=== PATIENT | male | born 1965 | race Caucasian/White ===

== ENCOUNTER 2017-09-16 11:01 | Day surgery (SDC) | payer OTHER ==
--- NOTE | 2017-09-14 08:52 | HP ---
CC: Dr. Anders; Dr. Gonzalez; Stanton Taylor MD * ADMITTING HISTORY AND PHYSICAL: DATE OF ADMISSION: 09/16/17 ADMITTING DIAGNOSES: 1. Left hydronephrosis. 2. Gross hematuria. 3. Calculus, left proximal ureter. 4. Calculus, left kidney. PLANNED PROCEDURE: Left retrograde, left stent insertion, and possible ureteroscopy (to be followed in the near future by shock wave lithotripsy). SURGEON: Dr. Taylor. HISTORY OF PRESENT ILLNESS: Jefry Clarke is a 52-year-old gentleman who was evaluated for a 3 to 4 week history of intermittent painless gross hematuria. Evaluation revealed a 7 to 8 mm calculus in the proximal left ureter with mild left hydronephrosis and approximately 1 cm left lower pole calculus. He was seen in followup and there was very little change in the position of the calculus in the left proximal ureter and he is now being brought in for left stent insertion, possible ureteroscopy to be followed in the near future by shock wave lithotripsy. Of note also is the fact that on his ultrasound, the appearance is consistent with autosomal polycystic kidney disease and he has a family history of autosomal polycystic kidney disease also. PAST MEDICAL HISTORY: Significant for: 1. Atrial fibrillation. 2. Graves disease (treated with radiation therapy). 3. Recurrent renal calculi. MEDICATIONS ON ADMISSION: 1. Levothyroxine 125 mcg once a day. 2. Xarelto 20 mg, which is currently on hold. 3. Flecainide acetate 50 mg 2 tablets by mouth twice a day and flecainide acetate 150 mg 1 tablet by mouth p.r.n. ALLERGIES: No known drug allergies. SMOKING HISTORY: He is a former smoker who quit about 12 years ago and has a 25 - pack year smoking history. FAMILY HISTORY: His father has kidney stones and his sister has adult polycystic kidney disease. REVIEW OF SYSTEMS: He denies any chest pain or shortness of breath. There is no history of diabetes mellitus or any other major systemic illness. PHYSICAL EXAMINATION GENERAL: Reveals a pleasant healthy appearing middle-aged gentleman. VITAL SIGNS: Blood pressure is 140/88, pulse 74 per minute, regular, oxygen saturation 98% on room air. LUNGS: Clear bilaterally. CARDIOVASCULAR EXAM: Regular rate and rhythm. S1, S2. ABDOMEN: Soft with mild left flank tenderness. IMPRESSION: I had a conversation with his vba programmer, Dr. Gonzalez and he feels that it is okay for Mr. Clarke to be off the Xarelto for the perioperative period and I will restart it at some point after the lithotripsy, once ensured there is no evidence of any bleeding related to the procedure. PLAN: Plan is for left ureteral stent insertion, possible ureteroscopy, to be followed in the near future by shock wave lithotripsy. [id number]/[facility] #: [id number] MARIO ALBERTO
[~2017-09-16 11:01] MED LIST: Buffered Lidocaine 0.9% SYRIN* 5 ML/SYR SYRINGE INTRADERM ONE; Gentamicin ADULT (*) 160 MG in NS 0.9% 100 ML* 100 ML IVPB ONE
[2017-09-16] MEDS ORDERED: Chloroprocaine 2%* 20 ML VIAL ONE (11:30)
[2017-09-16] MEDS ORDERED: Midazolam* 1 MG/ML 2 ML VIAL (2 MG) ONE (11:30)
[2017-09-16] MEDS ORDERED: Lidocaine 2% PF * 5 ML VIAL ONE (11:30)
[2017-09-16] MEDS ORDERED: fentaNYL* 50 MCG/ML 2 ML VIAL (100 MCG VIAL) ONE (11:30)
[2017-09-16] MEDS ORDERED: cefTRIAXone(*) 2 GM ADDV.VIAL IVPB ONE (11:53)
[2017-09-16] MEDS ORDERED: Iohexol 180 (CONTRAST) 10 ML SDV IV ONE ×2 (12:13→15:24)
[2017-09-16] MEDS ORDERED: Propofol* 10 MG/ML 20 ML BTL IV PUSH ONE ×2 (15:41)
[2017-09-16] MEDS ORDERED: Tamsulosin CAP* 0.4 MG ONE (16:13)
[2017-09-16] MEDS ORDERED: Ondansetron ODT TAB* 4 MG PO PRN (16:23)
[2017-09-16] MEDS ORDERED: fentaNYL* 50 MCG/ML 2 ML VIAL (100 MCG VIAL) IV PRN (16:23)
[2017-09-16] MEDS ORDERED: Naloxone* 0.4 MG/ML 1 ML VIAL IV PRN (16:23)
[2017-09-16] MEDS ORDERED: Acetaminophen TAB* 325 MG PO PRN (16:23)
[2017-09-16 17:08] VITALS: BP 145/96
--- NOTE | 2017-09-16 17:16 | RAD ---
INDICATION: LEFT retrograde pyelogram and stent placement. Technique: 6 seconds of?fluoroscopy?was provided?for the physician proceduralist. REPORT: LEFT retrograde pyelogram demonstrates only minimal calyceal blunting. LEFT ureteral stent placed. IMPRESSION: Procedural control films. CPT II Codes: G9500
--- NOTE | 2017-09-16 17:50 | RAD ---
Indication: Postop LEFT ureteral stent placement. Urolithiasis. Comparison: Intraoperative spot images of the same date and September 08, 2017 abdomen radiograph. Technique: Supine view of the abdomen. Report: LEFT ureteral stent in place. Multiple LEFT renal stones with dominant 0.8 cm stone at the lower pole without significant change. No suspicious calcifications along the course of the LEFT ureteral stent. No RIGHT side renal stones visualized however bowel contents partially obscures the renal fossa. Unremarkable bowel gas pattern and soft tissue contours. IMPRESSION: #. LEFT ureteral stent in place. No significant change in burden of LEFT nephrolithiasis.
--- NOTE | 2017-09-18 06:36 | OP ---
CC: Dr. Anders * DATE OF OPERATION: 09/16/17 - [facility] DATE OF : 61 SURGEON: Stanton Taylor MD ANESTHESIOLOGIST: Dr. Brown. ANESTHESIA: General. PRE-OP DIAGNOSES: 1. Left hydronephrosis. 2. Calculus, left proximal ureter. 3. Left renal calculus. POST-OP DIAGNOSES: 1. Left hydronephrosis. 2. Calculus, left proximal ureter. 3. Left renal calculus. OPERATIVE PROCEDURE: Cystoscopy, left retrograde pyelogram, left ureteral calculus manipulation, and left stent insertion. INDICATIONS: Jefry Clarke is a 52-year-old gentleman, who was evaluated and noted to have an obstructing calculus in the left proximal ureter and an additional left renal calculus. He is now being brought in for left stent insertion to be followed at some point in the near future by shockwave lithotripsy. COMPLICATIONS: None. STENT USED: 6-[place] stent, left ureter. OPERATIVE FINDINGS: 1. Mildly enlarged prostate, especially median lobe enlargement. 2. Left hydronephrosis with obstructing calculus in left proximal ureter. POSTOPERATIVE CONDITION: Stable. DESCRIPTION OF PROCEDURE: After induction of general anesthesia, the patient was placed in dorsal lithotomy position. Sequential compression devices were in place and functioning. Initial cystoscopy revealed a normal-appearing urethra , a mildly enlarged prostate, predominantly median lobe enlargement, and a normal-appearing bladder. Left retrograde pyelogram revealed fullness of the left collecting system. The calculus was in the upper part of the ureter and was carefully manipulated proximally using the open-ended catheter. Next, a 6-[place]orese stent was introduced and positioned under fluoroscopy with good proximal and distal positioning obtained. The bladder was emptied. The patient tolerated the procedure satisfactorily and was transferred back to the recovery area in stable condition. [id number]/[facility] #: [id number] MTDRafi
== END 2017-09-16 17:35 | disposition home or self-care (01) ==
LOC: OR 11:01
PROVIDERS: ATTEND Urology
DX: N13.2 Hydronephrosis with renal and ureteral calculous obstruction (principal); R31.0 Gross hematuria; I48.91 Unspecified atrial fibrillation; Z79.01 Long term (current) use of anticoagulants; Z87.891 Personal history of nicotine dependence; Z87.442 Personal history of urinary calculi; G47.33 Obstructive sleep apnea (adult) (pediatric); Q61.3 Polycystic kidney, unspecified
CPT/HCPCS: 74018; 74420; C1876; J0696; J1580; J2250; J2400; J2704; J3010

== ENCOUNTER 2017-09-23 11:01 | Day surgery (SDC) | payer OTHER ==
[~2017-09-23 11:01] MED LIST changes: +Dexamethasone IV* 4 MG/ML 1 ML (4 MG) IV SLOW PU ONE; +Famotidine IV* 10 MG/ML 2 ML (20 mg) IV ONE; -Gentamicin ADULT (*) 160 MG in NS 0.9% 100 ML* 100 ML IVPB ONE
[2017-09-23] MEDS ORDERED: Dexamethasone IV* 4 MG/ML 1 ML (4 MG) ONE (11:29)
[2017-09-23] MEDS ORDERED: Famotidine IV* 10 MG/ML 2 ML (20 mg) ONE (11:29)
[2017-09-23] MEDS ORDERED: cefTRIAXone(*) 2 GM ADDV.VIAL IVPB ONE (11:29)
[2017-09-23] MEDS ORDERED: fentaNYL* 50 MCG/ML 2 ML VIAL (100 MCG VIAL) ONE (12:05)
[2017-09-23] MEDS ORDERED: Midazolam* 1 MG/ML 2 ML VIAL (2 MG) ONE (12:06)
--- NOTE | 2017-09-23 12:13 | RAD ---
HISTORY: shockwave lithotripsy COMPARISONS: September 16, 2017. These are stable from the previous examination. A left ureteral stent is noted. VIEWS: Frontal views of the abdomen. FINDINGS: BOWEL: There is a nonspecific bowel gas pattern, with nondilated small bowel gas noted. CALCULI: There are multiple calculi overlying the lower pole of the left renal parenchymal shadow. BONES AND SOFT TISSUES: There are no osseous abnormalities. OTHER FINDINGS: The lung bases are clear. There is no subphrenic gas. IMPRESSION: STABLE LEFT NEPHROLITHIASIS WITH A LEFT URETERAL STENT
[2017-09-23] MEDS ORDERED: Furosemide IV* 10 MG/ML 2 ML VIAL (20 MG) ONE (12:59)
[2017-09-23] MEDS ORDERED: Ondansetron INJ* 2 MG/ML VIAL ONE (13:23)
[2017-09-23] MEDS ORDERED: Propofol* 10 MG/ML 20 ML BTL IV PUSH ONE (13:23)
[2017-09-23] MEDS ORDERED: Naloxone* 0.4 MG/ML 1 ML VIAL IV PRN (13:51)
[2017-09-23] MEDS ORDERED: fentaNYL* 50 MCG/ML 2 ML VIAL (100 MCG VIAL) IV PRN (13:51)
[2017-09-23] MEDS ORDERED: DiMENhydriNATE IV* 50 MG/ML VIAL IV PUSH PRN (13:51)
[2017-09-23 15:00] VITALS: BP 142/91
--- NOTE | 2017-09-23 15:34 | RAD ---
INDICATION: Status post lithotripsy. COMPARISON: Comparison is made with a prior study from 4 hours earlier. TECHNIQUE: Frontal supine films of the abdomen were obtained. FINDINGS: The small bowel and colon appear nondistended. There is a ureteral stent catheter present on the left side which demonstrates normal course. There are multiple calcifications which project over the lower pole of the left kidney consistent with renal calculi with slight fragmentation otherwise no change from the prior exam. IMPRESSION: MULTIPLE LEFT RENAL CALCULI, LEFT URETERAL STENT CATHETER IN PLACE.
--- NOTE | 2017-09-24 03:36 | OP ---
CC: Dr. Anand Anders; Dr. Gonzalez; Dr. Stanton Taylor* OPERATIVE REPORT: DATE OF OPERATION: 09/23/17 - [facility] DATE OF : 61 SURGEON: Stanton Taylor MD ANESTHESIOLOGIST: Dr. Tracy ANESTHESIA: General. PRE-OP DIAGNOSIS: Left renal calculi. POST-OP DIAGNOSIS: Left renal calculi. OPERATIVE PROCEDURE: Shockwave lithotripsy of left renal calculi. COMPLICATIONS: None. POSTOPERATIVE CONDITION: Stable. INDICATIONS: Jefry Clarke is a 52-year-old gentleman, who had undergone urgent left stent insertion for an obstructing calculus in the left proximal ureter. At that time, he was also noted to have a left renal calculus. He is now being brought in for a shockwave lithotripsy of the calculi, which are now both in the left kidney. DESCRIPTION OF PROCEDURE: After induction of general anesthesia, the patient was placed on the lithotripsy table in supine position, the dominant calculus appeared to be in the lower pole area of the left kidney with an additional calculus in the mid pole. Shockwave lithotripsy was commenced at a rate of 60 shocks per minute. After the initial 300 shocks, there was a pause in lithotripsy for several minutes in an effort to minimize any potential trauma to the kidney. Lithotripsy was then resumed and a total of 2400 shocks were distributed between the 2 calculi. The patient tolerated the procedure satisfactorily and was transferred back to the recovery area in stable condition. My plan is to obtain a postoperative x-ray to assess the degree of fragmentation prior to stent removal. [id number]/[facility] #: [id number] [facility] CENT[facility]
== END 2017-09-23 15:03 | disposition home or self-care (01) ==
LOC: OR 11:01
PROVIDERS: ATTEND Urology
DX: N20.0 Calculus of kidney (principal); I48.91 Unspecified atrial fibrillation; Z79.01 Long term (current) use of anticoagulants; I10 Essential (primary) hypertension; G47.33 Obstructive sleep apnea (adult) (pediatric); Z87.891 Personal history of nicotine dependence; Z68.36 Body mass index [BMI] 36.0-36.9, adult
CPT/HCPCS: 74018; J0696; J1100; J1940; J2250; J2405; J2704; J3010

== ENCOUNTER 2017-10-21 10:54 | Emergency (ER) | payer OTHER ==
--- NOTE | 2017-10-21 12:35 | ED ---
Upper Extremity Pain - HPI Summary HPI Summary: Lt hand dominant pt presents w/ Lt arm pain since 10am today. Focal to forearm and bicep. He was moving box springs at work and when he lifted a mattress, he felt a crunch in Lt elbow. 0/10 at rest - 5/10 w/ movement - flexion, tightness. Denies numbness, tingling, weakness. Has tried ice w/ some relief. No radiating pain - FROM wrist, fingers and shoulder. - History of Current Complaint Chief Complaint: EDExtremityUpper Stated Complaint: LT FOREARM INJURY Time Seen by Provider: 10/21/17 11:15 Hx Obtained From: Patient - Allergies/Home Medications Allergies/Adverse Reactions: Allergies Allergy/AdvReac Type Severity Reaction Status Date / Time No Known Allergies Allergy Verified 09/23/17 11:33 PMH/Surg Hx/FS Hx/Imm Hx Previously Healthy: Yes Endocrine/Hematology History: Reports: Hx Thyroid Disease - grave's - had radiation 2005 Denies: Hx Anticoagulant Therapy - h/o xarelto, Autoimmune Disease Cardiovascular History: Reports: Hx Atrial Fibrillation - paroxysmal, Hx Hypertension - no longer on meds, Other Cardiovascular Problems/Disorders - hx a -fib Respiratory History: Reports: Hx Sleep Apnea - no CPAP History: Reports: Hx Kidney Stones - x4 - lithotripsy last week Musculoskeletal History: Reports: Hx Tendonitis - left elbow Sensory History: Reports: Hx Contacts or Glasses - glasses Opthamlomology History: Reports: Hx Contacts or Glasses - glasses - Surgical History Surgery Procedure, Year, and Place: never had surgery Hx Anesthesia Reactions: No - never had surgery Infectious Disease History: No Infectious Disease History: Denies: Traveled Outside the [place] in Last 30 Days - Family History Known Family History: Positive: Other - sister - polycystic kidney dz - Social History Occupation: Employed Full-time Lives: With Family Alcohol Use: Rare Substance Use Type: Reports: Marijuana Substance Use Comment - Amount & Last Used: reports occas Smoking Status (MU): Former Smoker - 2004 Type: Cigarettes Amount Used/How Often: 1 - 1 1/2 ppd for 25 yrs Review of Systems Constitutional: Negative Negative: Fever, Chills, Fatigue Positive: Myalgia, Decreased ROM, Edema. Negative: Arthralgia Negative: Bruising Neurological: Negative Psychological: Normal All Other Systems Reviewed And Are Negative: Yes Physical Exam Triage Information Reviewed: Yes Vital Signs On Initial Exam: Initial Vitals Temp Pulse Resp BP Pulse Ox 98.5 F 70 15 161/105 96 10/21/17 10:59 10/21/17 10:59 10/21/17 10:59 10/21/17 10:59 10/21/17 10:59 Vital Signs Reviewed: Yes Appearance: Positive: Well-Appearing, No Pain Distress, Well-Nourished Skin: Positive: Warm, Skin Color Reflects Adequate Perfusion - no erythema, no ecchymosis, Dry Respiratory/Lung Sounds: Positive: Breath Sounds Present Cardiovascular: Positive: RRR, Pulses are Symmetrical in both Upper and Lower Extremities Musculoskeletal: Positive: Strength/ROM Intact, Pain @ - with Lt ebow flexion at 180-130 degrees; edema of forearm and posterior elbow Neurological: Positive: Normal, Sensory/Motor Intact, Alert, Oriented to Person Place, Time, CN Intact II-III Psychiatric: Positive: Normal Diagnostics - Vital Signs Vital Signs Temp Pulse Resp BP Pulse Ox 10/21/17 10:59 98.5 F 70 15 161/105 96 - Laboratory Lab Statement: Any lab studies that have been ordered have been reviewed, and results considered in the medical decision making process. Discharge - Sign-Out/Discharge Documenting (check all that apply): Patient Departure - Discharge Plan Condition: Stable Disposition: HOME Patient Education Materials: Muscle Strain (ED), How to Use a Sling (ED) Forms: *Work Release Referrals: Anand Anders MD [Primary Care Provider] - Additional Instructions: REST, ICE, ELEVATE AND KEEP IN SLING You may take ibuprofen alternating with acetaminophen as needed for pain Call orthopedics today to schedule follow-up *If you develop numbness, tingling, weakness, swelling or skin discoloration, return to ED - Billing Disposition and Condition Condition: STABLE Disposition: Home
--- NOTE | 2017-10-21 13:33 | RAD ---
HISTORY: concern for bicep tendon rupture COMPARISONS: None VIEWS: 4 , Frontal, lateral, and oblique views of the left elbow FINDINGS: BONE DENSITY: Normal. BONES: There is no displaced fracture. JOINTS: There is no arthropathy. There is no posterior supracondylar fat pad to suggest a joint effusion. ALIGNMENT: There is no dislocation. SOFT TISSUES: Unremarkable. OTHER FINDINGS: None. IMPRESSION: NO ACUTE OSSEOUS INJURY. IF SYMPTOMS PERSIST, RECOMMEND REPEAT IMAGING.
[2017-10-21 13:59] VITALS: BP 143/87
== END 2017-10-21 13:58 | disposition home or self-care (01) ==
LOC: ED 10:54
DX: S59.912A Unspecified injury of left forearm, initial encounter (principal); X50.0XXA Overexertion from strenuous movement or load, initial encounter; Y93.89 Activity, other specified; Y92.9 Unspecified place or not applicable; Y99.0 Civilian activity done for income or pay; E05.00 Thyrotoxicosis with diffuse goiter without thyrotoxic crisis or storm; I48.91 Unspecified atrial fibrillation; I10 Essential (primary) hypertension; Z87.442 Personal history of urinary calculi; Z87.891 Personal history of nicotine dependence
CPT/HCPCS: 99282

== ENCOUNTER 2017-11-05 13:02 | Day surgery (SDC) | payer OTHER ==
[~2017-11-05 13:02] MED LIST changes: -Dexamethasone IV* 4 MG/ML 1 ML (4 MG) IV SLOW PU ONE; -Famotidine IV* 10 MG/ML 2 ML (20 mg) IV ONE
[2017-11-05] MEDS ORDERED: ceFAZolin 1 GM VIAL(*) ONE (13:12)
[2017-11-05] MEDS ORDERED: ceFAZolin 2 GM in NS PREMIX(*) 2 GM/100 ML BAG IVPB ONE (13:14)
[2017-11-05] MEDS ORDERED: ROPIVACAINE 5 MG/ML 30 ML BTL (0.5%) ONE (15:42)
[2017-11-05] MEDS ORDERED: Lidocaine 2% PF * 5 ML VIAL ONE (15:48)
[2017-11-05] MEDS ORDERED: Propofol* 10 MG/ML 20 ML BTL IV PUSH ONE (15:48)
[2017-11-05] MEDS ORDERED: Midazolam* 1 MG/ML 2 ML VIAL (2 MG) ONE ×2 (15:50→17:09)
[2017-11-05] MEDS ORDERED: Succinylcholine* 20 MG/ML 10 ML VIAL ONE (15:50)
[2017-11-05] MEDS ORDERED: fentaNYL* 50 MCG/ML 2 ML VIAL (100 MCG VIAL) ONE ×2 (15:50→16:36)
[2017-11-05] MEDS ORDERED: Rocuronium* 10 MG/ML VIAL ONE (16:36)
[2017-11-05] MEDS ORDERED: Acetaminophen IV 1GM/100ML * 100 ML ONE (17:54)
[2017-11-05] MEDS ORDERED: Glycopyrrolate IV* 0.2 MG/ML 1 ML VIAL ONE (17:58)
[2017-11-05] MEDS ORDERED: Neostigmine Methylsulfate* 1 MG/ML 10 ML VIAL (1 mg/ml) ONE (17:58)
[2017-11-05] MEDS ORDERED: Ondansetron INJ* 2 MG/ML VIAL ONE (18:00)
[2017-11-05] MEDS ORDERED: Dexamethasone IV* 4 MG/ML 1 ML (4 MG) ONE (18:00)
[2017-11-05] MEDS ORDERED: Metoclopramide IV* 5 MG/ML 2 ML VIAL ONE (18:00)
[2017-11-05 18:34] VITALS: BP 153/94
--- NOTE | 2017-11-08 03:06 | OP ---
OPERATIVE REPORT: DATE OF OPERATION: 11/05/17 DATE OF : 61 SURGEON: Vishal Nunn MD ANALYTICAL LEAD: CONNOR Trimble, followed by CONNOR Huff. An pathology assistant was needed for the entirety of the procedure to aid in positioning of the arm and retraction. ANESTHESIOLOGIST: Dr. Brown. ANESTHESIA: General. PRE-OP DIAGNOSIS: Left distal biceps tendon rupture. POST-OP DIAGNOSIS: Left distal biceps tendon rupture. OPERATIVE PROCEDURE: Open repair of the left distal biceps tendon rupture. INDICATIONS: Jefry had the rupture, which occurred at work. He had retraction of the biceps tendon and a reverse Porfirio deformity. We had talked about treating this non-surgically versus surgery. He understood the risk of weakness with non- surgical treatment. He elected to proceed with surgical repair. He understands the risks of neurovascular injury. ESTIMATED BLOOD LOSS: 2 mL. COMPLICATIONS: None. FINDINGS: See above and below. DESCRIPTION OF PROCEDURE: Jefry was seen in the preoperative holding area. The correct site, side and procedure were identified. We came back to the operating room. The arm was prepped and draped in the usual fashion. A time- out was performed. The arm was exsanguinated with Esmarch and the tourniquet inflated to 275 mmHg. We then made a longitudinal incision over the anterolateral forearm of about 7 to 8 cm. Dissection was carried down the lateral, antebrachial cutaneous nerve was identified. The fascia was incised medial to that and the nerve was retracted laterally. I then carried down the dissection along the tract where the distal biceps tendon had been. The tendon ruptured at its insertion and retracted to the level of the lacertus. The lacertus was released. The tendon stump was brought up out of the wound. The frayed edge was excised off using a sterile tongue depressors and a 15 blade. I then placed two #2 FiberWire with sutures up into the tendon over a length of about 5 cm. The biceps muscle was freed up of all adhesions and mobilized and brought back down distally. I then made a dissection down to the radial tuberosity. I did ligate the radial recurrent artery together with the venae comitantes. The radial tuberosity was freed up of the remnant of biceps tendon that was attached to it with the curette and elevator and the rongeur. I then used my Pineapple bur to make a longitudinal trough in the biceps tuberosity with the forearm in full supination. I used my 2.0 mm drill bit to make 2 drill holes from the side of the radius bone into the trough. This was done with the forearm pronated. I then used two 0 Prolene sutures to suture shuttle my one tail of each #2 FiberWire suture through the bone tunnel into the bony trough. I then pulled maximum attention on one FiberWire suture while the other FiberWire suture was tied off. The distal end of the biceps was docked nicely into the bony trough. The second #2 FiberWire suture was then tied off. The bone bridge was over a cm between the 2 bone tunnels. I was able to fully pronate and supinate forearm. I was able bring the elbow out to about 20 degrees of flexion without any gapping at the repair site without the tendon pulling out of the bony trough. Everything was looking good. So, we irrigated out the wound. The skin was closed with 3-0 Monocryl and Steri-Strips. 0.5% ropivacaine was infiltrated all around the operative area. The wound was dressed and a long arm splint with lateral buttress was applied with the elbow in 80 degrees flexion. Tourniquet was let down. Hand pinked up immediately. He was then woken up and taken to the recovery room in stable condition. [id number]/[facility] #: [id number] MARIO ALBERTO
== END 2017-11-05 19:08 | disposition home or self-care (01) ==
LOC: OREAST 13:02
PROVIDERS: ATTEND Orthopaedic Surgery Hand Surgery
DX: S46.212A Strain of muscle, fascia and tendon of other parts of biceps, left arm, initial encounter (principal); I10 Essential (primary) hypertension; I48.91 Unspecified atrial fibrillation; E03.9 Hypothyroidism, unspecified; Z87.891 Personal history of nicotine dependence
CPT/HCPCS: 88304; 93005; J0330; J0690; J1100; J2250; J2405; J2704; J2710; J2765; J2795; J3010